=== PATIENT | female | born 1990 | race Caucasian/White ===

== ENCOUNTER 2023-09-24 07:09 | Emergency (ER) | payer OTHER ==
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
[2023-09-24 07:48] VITALS: PULSE 80; RESP 18
[2023-09-24 10:22] LABS: Appearance,Urine Clear (Clear); Bacteria,Urine Rare /hpf; Bilirubin,Urine Negative (Negative); Blood,Urine Trace (Negative); Color,Urine Yellow; Glucose,Urine (UA) Negative (Negative); Ketones,Urine 4+ (Negative); Leukocyte Esterase,Urine Negative (Negative); Mucus,Urine Many /hpf; Nitrite,Urine Negative (Negative); PH, Urine 6.5 (5.0-8.0); Protein,Urine 1+ (Negative); RBC,Urine 3 /hpf (0-5); Specific Gravity,Urine 1.032 (1.001-1.035); Squamous Epithelial Cell,Urine 2 /hpf (0-4); Triple Phosphate Crystal,Urine Occasional /hpf; WBC,Urine 2 /hpf (0-5)
[2023-09-24] MEDS: ACETAMINOPHEN TAB 500 MG TAB PO STA (10:22)
[2023-09-24] MEDS: KETOROLAC 15 MG/ML 1 ML VIAL IM STA (10:23)
[2023-09-24 11:12] VITALS: BP 110/78; TEMP 98.1
[2023-09-26 15:13] LABS: C. trachomatis,PCR Negative (Negative)
[2023-09-26 15:22] LABS: N. gonorrhoeae,PCR Negative (Negative)
== END 2023-09-24 10:36 | disposition left against medical advice (07) ==
LOC: EC 07:09
DX: T74.21XA Adult sexual abuse, confirmed, initial encounter (principal); F19.20 Other psychoactive substance dependence, uncomplicated; F17.290 Nicotine dependence, other tobacco product, uncomplicated; Z53.29 Procedure and treatment not carried out because of patient's decision for other reasons
CPT/HCPCS: 81001; 81025; 87491; 87591; 99285